=== PATIENT | female | born 1965 | race Caucasian/White ===

== ENCOUNTER 2024-05-02 07:49 | Emergency (ER) | payer MEDICAID ==
[~2024-05-02] VITALS: Ht 154.9 cm; Wt 57.1 kg
[2024-05-02] MEDS: chlordiazePOXIDE 25mg capsule PO ONE (08:47)
[2024-05-02 08:49] VITALS: BP 138/78; PULSE 70; RESP 16; TEMP 97.9; O2SAT 97
== END 2024-05-02 08:50 | disposition home or self-care (01) ==
LOC: ER 07:49
DX: F41.9 Anxiety disorder, unspecified (principal); Z76.0 Encounter for issue of repeat prescription; F15.90 Other stimulant use, unspecified, uncomplicated; F10.90 Alcohol use, unspecified, uncomplicated
CPT/HCPCS: 99283

== ENCOUNTER 2024-07-06 11:28 | Emergency (ER) | payer MEDICAID ==
[~2024-07-06] VITALS: Ht 157.5 cm; Wt 54.5 kg
[2024-07-06 11:31] VITALS: BP 136/64; PULSE 87; RESP 18; TEMP 97.8; O2SAT 98
== END 2024-07-06 12:03 | disposition home or self-care (01) ==
LOC: ER 11:29
DX: Z00.00 Encounter for general adult medical examination without abnormal findings (principal); F15.90 Other stimulant use, unspecified, uncomplicated
CPT/HCPCS: 99281

== ENCOUNTER 2024-07-14 05:04 | Emergency (ER) | payer MEDICAID ==
[~2024-07-14] VITALS: Ht 154.9 cm; Wt 56.4 kg
[2024-07-14 05:39] VITALS: BP 134/71; PULSE 107; RESP 20; TEMP 97.4; O2SAT 94
== END 2024-07-14 05:32 | disposition home or self-care (01) ==
LOC: ER 05:05
DX: Z00.00 Encounter for general adult medical examination without abnormal findings (principal); F15.90 Other stimulant use, unspecified, uncomplicated; F10.90 Alcohol use, unspecified, uncomplicated
CPT/HCPCS: 99281

== ENCOUNTER 2024-07-14 20:26 | Emergency (ER) | payer MEDICAID ==
[~2024-07-14] VITALS: Ht 154.9 cm; Wt 54.1 kg
[2024-07-14 20:35] VITALS: BP 134/84; PULSE 102; RESP 16; TEMP 98.1; O2SAT 97
== END 2024-07-14 21:15 | disposition home or self-care (01) ==
LOC: ER 20:27
DX: R10.9 Unspecified abdominal pain (principal); F15.90 Other stimulant use, unspecified, uncomplicated; R11.0 Nausea; Z59.00 Homelessness unspecified
CPT/HCPCS: 99283

== ENCOUNTER 2024-07-16 07:36 | Emergency (ER) | payer MEDICAID ==
[~2024-07-16] VITALS: Ht 154.9 cm; Wt 50.0 kg
[2024-07-16 07:37] VITALS: RESP 18; TEMP 99.4; O2SAT 97
[2024-07-16] MEDS ORDERED: RISP-31 PO (08:14)
[2024-07-16] MEDS ORDERED: IBUP-1984 PO (08:14)
[2024-07-16 08:27] LABS: BILIRUBIN,URINE NEGATIVE (Neg); CLARITY,URINE CLEAR (Clear); COLOR,URINE YELLOW (Yellow); GLUCOSE, URINE NEGATIVE (Neg); KETONES,URINE 15 mg/dl (Neg); LEUKOCYTE ESTERASE ,URINE TRACE (Neg); NITRITES, URINE POSITIVE (Neg); OCCULT BLOOD,URINE MODERATE (Neg); PROTEIN,URINE 30 mg/dl (Neg); UROBILINOGEN,URINE 0.2 E.U/dL (0.2-1.0)
[2024-07-16 08:34] LABS: BASOPHILS % (AUTO) 0.2 % (0-1); EOSINOPHILS % (AUTO) 0 % (0-6); HEMATOCRIT 38.3 % (35.0-45.0); HEMOGLOBIN 13.4 g/dl (12.0-16.0); LYMPHOCYTES # (AUTO) 0.7 X10'3 (1.1-4.8); LYMPHOCYTES % (AUTO) 9.1 % (21-51); MEAN CORPUSCULAR HEMOGLOBIN 29.4 PG (27.0-31.0); MEAN CORPUSCULAR HGB CONC 34.9 g/dL (33.0-36.5); MEAN CORPUSCULAR VOLUME 84.3 FL (78-98); MEAN PLATELET VOLUME 7.7 FL (7.4-10.4); MONOCYTES # (AUTO) 0.5 X10'3 (0-0.9); MONOCYTES % (AUTO) 7.2 % (2-12); NEUTROPHILS # (AUTO) 6.1 X10'3 (1.8-7.7); NEUTROPHILS % (AUTO) 83.5 % (42-75); PLATELET COUNT 273 X10'3 (140-440); RED BLOOD COUNT 4.54 X10'6 (4.20-5.60); RED CELL DISTRIBUTION WIDTH 13.9 % (11.5-14.5); WHITE BLOOD COUNT 7.3 X10'3 (4.5-11.0)
[2024-07-16 08:56] LABS: ALANINE AMINOTRANSFERASE 16 U/L (12-78); ALBUMIN 2.8 G/DL (3.4-5.0); ALBUMIN/GLOBULIN RATIO 0.8 (1.1-1.5); ALKALINE PHOSPHATASE 66 IU/L (46-116); ANION GAP 10 (8-16); ASPARTATE AMINO TRANSFERASE 19 U/L (10-37); BILIRUBIN,TOTAL 0.9 MG/DL (0.1-1.0); BLOOD UREA NITROGEN 11 MG/DL (7-18); BUN/CREATININE RATIO 15.5 (10.0-20.0); CALCIUM 8.1 MG/DL (8.5-10.1); CHLORIDE 101 MMOL/L (99-107); CREATININE 0.71 MG/DL (0.40-0.90); ETHANOL < 10 MG/DL (<10); GLUCOSE 163 MG/DL (70-104); LIPASE 26 U/L (16-77); POTASSIUM 3.3 MMOL/L (3.5-5.1); SODIUM 134 MMOL/L (135-145); TOTAL CARBON DIOXIDE 22.6 MMOL/L (24-32); TOTAL PROTEIN 6.1 G/DL (6.4-8.2); eCRCL 64 ML/MIN; eGFR 84 ML/MIN
[2024-07-16 08:58] VITALS: BP 95/37; PULSE 60
[2024-07-16 09:16] LABS: UA COLLECTION TYPE CLN CATCH MIDSTREAM
[2024-07-16 09:17] LABS: BACTERIA,URINE 4+ /HPF (Neg); MUCUS STRANDS FEW /LPF (Neg); RBC,URINE 0-2 /HPF (0-2); SQUAMOUS EPITHELIAL CELL,UR FEW /LPF (FEW); WBC,URINE 20-30 /HPF (0-4)
== END 2024-07-16 09:04 | disposition left against medical advice (07) ==
LOC: ER 07:36
DX: R41.82 Altered mental status, unspecified (principal); F15.90 Other stimulant use, unspecified, uncomplicated; F10.90 Alcohol use, unspecified, uncomplicated
CPT/HCPCS: 36415; 80053; 80320; 81001; 83690; 85025; 87077; 87088; 87186; 99283

== ENCOUNTER 2024-07-16 18:09 | Emergency (ER) | payer MEDICAID ==
[~2024-07-16] VITALS: Ht 154.9 cm; Wt 53.4 kg
[~2024-07-16 18:09] MED LIST: IBUP-1984 PO; RISP-31 PO
[2024-07-16 18:17] VITALS: BP 118/78; PULSE 114; RESP 16; TEMP 98.1; O2SAT 97
[2024-07-20] MEDS ORDERED: NITR100C6 PO (09:54)
== END 2024-07-16 21:10 | disposition home or self-care (01) ==
LOC: ER 18:10
DX: J00 Acute nasopharyngitis [common cold] (principal); F15.90 Other stimulant use, unspecified, uncomplicated; Z59.00 Homelessness unspecified; Z79.1 Long term (current) use of non-steroidal anti-inflammatories (NSAID)
CPT/HCPCS: 99281

== ENCOUNTER 2024-07-17 22:08 | Emergency (ER) | payer MEDICAID ==
[~2024-07-17] VITALS: Ht 154.9 cm; Wt 53.4 kg
[2024-07-17 22:12] VITALS: BP 107/43; TEMP 97.6
[2024-07-18] MEDS: acetaminophen 325mg tablet PO STA (00:08)
[2024-07-18 01:14] VITALS: PULSE 87; RESP 18; O2SAT 95
[2024-07-20] MEDS ORDERED: NITR100C6 PO (09:54)
== END 2024-07-18 01:16 | disposition home or self-care (01) ==
LOC: ER 22:09
DX: M79.672 Pain in left foot (principal); M79.671 Pain in right foot; F15.90 Other stimulant use, unspecified, uncomplicated
CPT/HCPCS: 99282

== ENCOUNTER 2024-07-19 19:10 | Emergency (ER) | payer MEDICAID ==
[~2024-07-19] VITALS: Ht 154.9 cm; Wt 53.5 kg
[2024-07-19 19:14] VITALS: BP 106/68; PULSE 109; TEMP 97.9; O2SAT 95
[2024-07-19] MEDS: acetaminophen 325mg tablet PO ONE (20:28)
[2024-07-19 20:30] VITALS: RESP 16
[2024-07-20] MEDS ORDERED: NITR100C6 PO (09:54)
== END 2024-07-19 20:31 | disposition home or self-care (01) ==
LOC: ER 19:11
DX: M79.643 Pain in unspecified hand (principal); Z59.00 Homelessness unspecified
CPT/HCPCS: 99281; 99282

== ENCOUNTER 2024-07-21 04:20 | Emergency (ER) | payer MEDICAID ==
[~2024-07-21] VITALS: Ht 154.9 cm; Wt 53.6 kg
[~2024-07-21 04:20] MED LIST changes: +NITR100C6 PO
[2024-07-21 04:24] VITALS: BP 114/64; PULSE 97; RESP 16; TEMP 98.1; O2SAT 98
[2024-07-21] MEDS: acetaminophen 325mg tablet PO ONE (04:34)
== END 2024-07-21 04:37 | disposition home or self-care (01) ==
LOC: ER 04:20
DX: M79.672 Pain in left foot (principal); M79.671 Pain in right foot; M79.641 Pain in right hand; M79.642 Pain in left hand; Z59.00 Homelessness unspecified
CPT/HCPCS: 99282

== ENCOUNTER 2024-07-31 00:50 | Emergency (ER) | payer MEDICAID ==
[~2024-07-31] VITALS: Ht 154.9 cm; Wt 50.1 kg
[2024-07-31 00:53] VITALS: BP 139/119; PULSE 107; RESP 16; TEMP 98.1; O2SAT 97
== END 2024-07-31 02:45 | disposition home or self-care (01) ==
LOC: ER 00:50
DX: Z59.00 Homelessness unspecified (principal); F10.90 Alcohol use, unspecified, uncomplicated; F15.90 Other stimulant use, unspecified, uncomplicated; Y90.9 Presence of alcohol in blood, level not specified; Z00.00 Encounter for general adult medical examination without abnormal findings
CPT/HCPCS: 99281

== ENCOUNTER 2024-09-05 08:38 | Emergency (ER) | payer MEDICAID ==
[~2024-09-05] VITALS: Ht 154.9 cm; Wt 63.9 kg
[2024-09-05 08:55] VITALS: BP 110/78; PULSE 103; RESP 18; TEMP 97.3; O2SAT 98
== END 2024-09-05 12:03 | disposition left against medical advice (07) ==
LOC: ER 08:38
DX: R05.9 Cough, unspecified (principal); Z53.21 Procedure and treatment not carried out due to patient leaving prior to being seen by health care provider

== ENCOUNTER 2024-09-05 15:23 | Emergency (ER) | payer MEDICAID ==
[~2024-09-05] VITALS: Ht 154.9 cm; Wt 63.9 kg
[2024-09-05 15:43] VITALS: BP 110/78; PULSE 103; RESP 18; TEMP 97.3; O2SAT 98
== END 2024-09-05 19:13 | disposition left against medical advice (07) ==
LOC: ER 15:23
DX: R05.9 Cough, unspecified (principal); Z53.21 Procedure and treatment not carried out due to patient leaving prior to being seen by health care provider

== ENCOUNTER 2024-09-26 08:38 | Emergency (ER) | payer MEDICAID ==
[~2024-09-26] VITALS: Ht 154.9 cm; Wt 51.8 kg
[2024-09-26 08:39] VITALS: BP 128/65; PULSE 86; O2SAT 98
[2024-09-26 08:47] VITALS: RESP 16
[2024-09-26 09:11] LABS: BASOPHILS % (AUTO) 0.2 % (0-1); EOSINOPHILS % (AUTO) 0.6 % (0-6); HEMATOCRIT 42.1 % (35.0-45.0); HEMOGLOBIN 13.9 g/dl (12.0-16.0); LYMPHOCYTES # (AUTO) 1.3 X10'3 (1.1-4.8); LYMPHOCYTES % (AUTO) 22.8 % (21-51); MEAN CORPUSCULAR HEMOGLOBIN 27.8 PG (27.0-31.0); MEAN CORPUSCULAR HGB CONC 33.1 g/dL (33.0-36.5); MONOCYTES # (AUTO) 0.5 X10'3 (0-0.9); MONOCYTES % (AUTO) 8.1 % (2-12); NEUTROPHILS % (AUTO) 68.3 % (42-75); PLATELET COUNT 323 X10'3 (140-440); RED BLOOD COUNT 5.01 X10'6 (4.20-5.60); RED CELL DISTRIBUTION WIDTH 15.6 % (11.5-14.5); WHITE BLOOD COUNT 5.8 X10'3 (4.5-11.0)
[2024-09-26 09:35] LABS: ALBUMIN 3.5 G/DL (3.4-5.0); ANION GAP 9 (8-16); BLOOD UREA NITROGEN 14 MG/DL (7-18); BUN/CREATININE RATIO 22.2 (10.0-20.0); CALCIUM 9.1 MG/DL (8.5-10.1); CHLORIDE 105 MMOL/L (99-107); CREATININE 0.63 MG/DL (0.40-0.90); GLUCOSE 151 MG/DL (70-104); POTASSIUM 3.2 MMOL/L (3.5-5.1); SODIUM 142 MMOL/L (135-145); TOTAL CARBON DIOXIDE 28.1 MMOL/L (24-32); eCRCL 71 ML/MIN; eGFR > 90 ML/MIN
[2024-09-26 09:37] LABS: ETHANOL < 10 MG/DL (<10)
[2024-09-26] MEDS ORDERED: potassium Cl 20 mEq SR tablet PO STA (09:54)
[2024-09-26 10:16] LABS: BILIRUBIN,URINE NEGATIVE (Neg); CLARITY,URINE SLIGHTLY CLOUDY (Clear); COLOR,URINE YELLOW (Yellow); GLUCOSE, URINE NEGATIVE (Neg); KETONES,URINE NEGATIVE (Neg); LEUKOCYTE ESTERASE ,URINE NEGATIVE (Neg); NITRITES, URINE POSITIVE (Neg); OCCULT BLOOD,URINE NEGATIVE (Neg); PROTEIN,URINE NEGATIVE (Neg); UROBILINOGEN,URINE 0.2 E.U/dL (0.2-1.0)
[2024-09-26 10:20] LABS: UA COLLECTION TYPE CLN CATCH MIDSTREAM
[2024-09-26 10:22] LABS: BACTERIA,URINE 4+ /HPF (Neg); RBC,URINE 0-2 /HPF (0-2); SQUAMOUS EPITHELIAL CELL,UR FEW /LPF (FEW)
[2024-09-26 10:30] VITALS: TEMP 97.8
[2024-09-26 10:41] LABS: URINE AMPHETAMINE SCREEN POSITIVE (Neg); URINE BARBITUATE SCREEN NEGATIVE (Neg); URINE BENZODIAZEPINES SCREEN NEGATIVE (Neg); URINE CANNABINOID SCREEN NEGATIVE (Neg); URINE COCAINE SCREEN NEGATIVE (Neg); URINE METHADONE SCREEN NEGATIVE (Neg); URINE OPIATE SCREEN NEGATIVE (Neg); URINE PHENCYCLIDINE SCREEN NEGATIVE (Neg)
== END 2024-09-26 10:31 | disposition home or self-care (01) ==
LOC: ER 08:38
DX: Z00.00 Encounter for general adult medical examination without abnormal findings (principal); E87.6 Hypokalemia; F15.90 Other stimulant use, unspecified, uncomplicated; Z59.00 Homelessness unspecified; Z79.1 Long term (current) use of non-steroidal anti-inflammatories (NSAID); Z79.899 Other long term (current) drug therapy
CPT/HCPCS: 36415; 80048; 80305; 80320; 81001; 84443; 85025; 99283

== ENCOUNTER 2025-04-18 16:54 | Emergency (ER) | payer MEDICAID ==
[~2025-04-18] VITALS: Ht 154.9 cm; Wt 48.4 kg
[2025-04-18 17:05] VITALS: TEMP 97.8; O2SAT 97
--- NOTE | 2025-04-18 17:06 | ELECTROCARDIOGRAPH REPORT ---
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 Erick Carver Measurements Intervals [place] Rate: 95 P: 77 VT: 146 QRS: 44 QRSD: 104 T: 78 QT: 343 QTc: 431 Interpretive Statements Sinus rhythm Electronically Signed On 04-20-2025 21:43:[address] Erick Carver Please click the below link to view image of tracing.
--- NOTE | 2025-04-18 17:35 | RADIOLOGY REPORT ---
CHEST RADIOGRAPH Indication: CP Technique: DI CHEST,SINGLE VIEW Comparison: None FINDINGS: The cardiac silhouette is unremarkable. The lungs demonstrate no pulmonary airspace consolidation. The pulmonary vasculature is unremarkable. There is no pleural effusion. There is no pneumothorax. IMPRESSION: No pulmonary airspace consolidation.
[2025-04-18 17:49] LABS: MEAN PLATELET VOLUME 7.4 FL (7.4-10.4); RED CELL DISTRIBUTION WIDTH 14.1 % (11.5-14.5)
[2025-04-18 18:11] LABS: CREATININE 0.63 MG/DL (0.40-0.90); PRO BRAIN NATRIURETIC PEPTIDE < 30 PG/ML (0-125); TOTAL CARBON DIOXIDE 30.9 MMOL/L (24-32); eCRCL 71 ML/MIN; eGFR > 90 ML/MIN
[2025-04-18] MEDS: ondansetron 4mg rapidly disintigrating tab PO ONE (21:04)
[2025-04-18] MEDS: ketorolac trometh 30MG/ML vial 30 MG/ML VIAL IM ONE (21:23)
--- NOTE | 2025-04-18 21:23 | Physician Documentation ---
History of Present Illness ~ Chief Complaint: Chest Pain Stated Complaint: CHEST PAIN Time Seen by MD: 20:16 Mode of Arrival: Ambulatory HPI 59-year-old female presents to the ED with a 3-4 days of chest wall pain which increases with inspiration. He also complains of mild nausea. Denies any cardiac history denies any radiating chest pain reports that the pain is burning in nature and across her chest. States she has an ongoing cigarette smoker denies any history of COPD Day of Onset: Apr 18, 2025 Tetanus within 5 Years?: Yes Allergies: Coded Allergies: No Known Allergies (Unverified , 09/05/24) Active Prescriptions See Medication Reconciliation Form. Medication Reconciliation Scheduled Ibuprofen* (Motrin*), 1 TAB PO TID, (Reported) Nitrofurantoin Monohyd/M-Cryst (Macrobid 100 mg Capsule), 1 CAP PO Q12H Risperidone (Risperidone), 1 TAB PO BID, (Reported) Past Medical History Past Medical History: No Pertinent History Past Surgical History: no surgical history Alcohol Use: Sober Drug Use: methamphetamine Review of Systems All Other Systems at this time: Reviewed and Negative ROS As stated above in the HPI, otherwise all systems are reviewed and negative. Physical Exam Vital Signs: Temperature: 97.8, Source: Oral, Heart Rate: 86, Respiratory Rate: 16, BP: 97/64, Pulse Oximetry: 97, Weight: 48.400 Oxygen Flow Rate: 0 Physical Exam General: Alert, no apparent distress. Respiratory: Lungs clear, no respiratory distress. Chest: No accessory muscle use. Cardiovascular: Regular rate and rhythm, no murmurs. Neurologic: Oriented x4. Psychiatric: Normal mood and affect. Skin: Normal color, warm and dry. No edema, no ecchymosis. Progress Results/Orders Results/Orders Completed Orders - YOSHI MAGUIRE NP Ketorolac Trometh 30mg/Ml Vial (Toradol (04/18/25 20:55) Ondansetron Disint. Tablet (Zofran Odt T (04/18/25 20:55) Medications Received in ER Medications (Trade) Dose Ordered Sig/[place] Route PRN Reason Start Time Stop Time Status Last Admin Dose Admin (Toradol inj. 30mg/ml) 30 mg ONCE ONCE IM 04/18/25 20:55 04/18/25 21:05 DC 04/18/25 21:23 30 MG (Zofran ODT tablet) 4 mg ONCE ONCE PO 04/18/25 20:55 04/18/25 20:56 DC 04/18/25 21:04 4 MG Vital Signs 04/18/25 04/18/25 04/18/25 04/18/25 17:05 20:49 21:23 22:28 Temp 97.8 Pulse 86 64 Resp 18 16 15 14 B/P (MAP) 97/64 93/65 Pulse Ox 97 O2 Flow Rate 0 Laboratory Tests Test 04/18/25 17:30 04/18/25 19:38 04/18/25 21:02 White Blood Count 7.5 Red Blood Count 4.89 Hemoglobin 14.3 Hematocrit 41.4 Mean Corpuscular Volume 84.7 Mean Corpuscular Hemoglobin 29.3 Mean Corpuscular Hemoglobin Concent 34.6 Red Cell Distribution Width 14.1 Platelet Count 383 Mean Platelet Volume 7.4 Neutrophils (%) (Auto) 63.9 Lymphocytes (%) (Auto) 25.1 Monocytes (%) (Auto) 8.7 Eosinophils (%) (Auto) 1.9 Basophils (%) (Auto) 0.4 Neutrophils # (Auto) 4.8 Lymphocytes # (Auto) 1.9 Monocytes # (Auto) 0.7 Eosinophils # (Auto) 0.1 Basophils # (Auto) 0.0 CBC Comment Sodium Level 142 Potassium Level 3.8 Chloride Level 108 H Carbon Dioxide Level 30.9 Anion Gap 3 L Blood Urea Nitrogen 13 Creatinine 0.63 Estimated GFR/1.73 m2 > 90 BUN/Creatinine Ratio 20.6 H Glucose Level 102 Calcium Level 8.4 L Troponin I High Sensitivity 4 4 4 Pro-B-Type Natriuretic Peptide < 30 Albumin 2.7 L Chemistry Comments Troponin I High Sens Percent Delta 0 0 Troponin I Hi Sens Absolute Change 0 0 Medical Decision Making Findings Lab results, EKG in x-ray showed no signs any evidence of a cardiac event. He has suspect chest wall pain secondary to cigarette smoking. Chest x-ray had no signs of pulmonary infiltrate. I provide her with a Toradol shot and advised her to stop cigarette smoking. Going to follow up in the outpatient setting for further evaluation She reported improved symptoms after receiving Toradol shot Differential Dx:Considerations: Include: Chest wall contusion, Flail chest, Myocardial contusion, Pneumothorax, Pulmonary contusion, Rib fracture, Renal contusion, Splenic fracture, Tension pneumothorax, Other Departure Disposition: HOME / SELF CARE / HOMELESS Impression: Primary Impression: Chest wall pain Condition: Stable Discharge Instructions: Nonspecific Chest Pain, Adult, Chest Wall Pain Referrals: NO PRIMARY CARE PROVIDER (PCP) Signature Scribe Signature: f Attestation: Scribed for Yoshi Maguire Miner Placer by Yoshi Beltran NP . 04/18/25 22:52 YOSHI MAGUIRE NP Apr 18, 2025 21:23
[2025-04-18 22:28] VITALS: BP 93/65; PULSE 64; RESP 14
== END 2025-04-18 22:29 | disposition home or self-care (01) ==
LOC: ER 16:54
DX: R07.89 Other chest pain (principal); F15.90 Other stimulant use, unspecified, uncomplicated; F17.210 Nicotine dependence, cigarettes, uncomplicated; Z79.899 Other long term (current) drug therapy; Z79.1 Long term (current) use of non-steroidal anti-inflammatories (NSAID)
CPT/HCPCS: 36415; 71045; 80048; 83880; 84484; 85025; 93005; 96372; 99285; J1885